=== PATIENT | female | born 1990 ===

== ENCOUNTER → 2018-05-31 | Outpatient (CLI) | payer OTHER ==
[~2018-05-31] MED LIST: ACET325 PO; DOCU100 PO; IBUP800 PO; Verotin-Gr Cap1 EACH PO
== END ==
LOC: LAB SHORT 16:24 → LAB 16:24
DX: Z34.81 Encounter for supervision of other normal pregnancy, first trimester (principal)
CPT/HCPCS: 87081; 87184; 87653

== ENCOUNTER 2018-07-01 19:38 | Inpatient (IN) | payer OTHER ==
[~2018-07-01] VITALS: Ht 157.5 cm; Wt 0.3 kg
--- NOTE | 2018-07-01 19:56 | NUR ---
HERE WITH POSSIBLE SROM AT 0900 TODAY. INTERMITTENT CONTRACTIONS
--- NOTE | 2018-07-01 20:47 | NUR ---
ADMITTED TO [facility] AFTER SROM AT 0900 THIS AM
[2018-07-01 21:20] LABS: BASOPHILS ABSOLUTE AUTO 0.03 K/mm3 (0.00-0.23); BASOPHILS PERCENT AUTO 0 % (0-2); EOSINOPHILS ABSOLUTE AUTO 0.11 K/mm3 (0.00-0.68); EOSINOPHILS PERCENT AUTO 1 % (0-6); Hematocrit 37.6 % (33.0-51.0); Hemoglobin 11.9 g/dL (11.5-16.0); IMMATURE GRAN ABSOLUTE AUTO 0.08 K/mm3 (0.00-0.10); IMMATURE GRAN PERCENT AUTO 1 % (0-1); LYMPHOCYTES ABSOLUTE AUTO 1.75 K/mm3 (0.84-5.20); LYMPHOCYTES PERCENT AUTO 17 % (21-46); MONOCYTES ABSOLUTE AUTO 0.92 K/mm3 (0.16-1.47); MONOCYTES PERCENT AUTO 9 % (4-13); Mean Corpuscular HGB 26.6 pg (26.0-34.0); Mean Corpuscular HGB Conc 31.6 g/dL (31.5-36.5); Mean Corpuscular Volume 84 fL (80-100); NEUTROPHILS ABSOLUTE AUTO 7.71 K/mm3 (1.96-9.15); NEUTROPHILS PERCENT AUTO 73 % (41-73); Platelet Count 228 K/mm3 (150-400); RDW Coefficient Variation 14.7 % (11.7-14.2); RDW Standard Deviation 45.2 fL (35.1-46.3); Red Blood Cell Count 4.47 M/mm3 (3.80-5.20)
[2018-07-02 05:59] LABS: Hemoglobin 11.7 g/dL (11.5-16.0); Mean Corpuscular HGB 26.5 pg (26.0-34.0); Mean Corpuscular HGB Conc 31.6 g/dL (31.5-36.5); Mean Corpuscular Volume 84 fL (80-100); Platelet Count 213 K/mm3 (150-400); RDW Coefficient Variation 14.6 % (11.7-14.2); RDW Standard Deviation 44.4 fL (35.1-46.3); Red Blood Cell Count 4.41 M/mm3 (3.80-5.20); White Blood Cell Count 18.07 K/mm3 (4.00-11.30)
--- NOTE | 2018-07-02 18:10 | NUR ---
D/C INSTRUCTIONS DISCUSSED AND SIGNED. PT HAS NO QUESTIONS OR CONCERNS AT THIS TIME. D/C
--- NOTE | 2018-07-02 18:21 | NUR ---
NO PPFU APPOINTMENT MADE AT THIS TIME BECAUSE PT D/C TO BE WITH [facility] THAT WAS TRANSPORTED TO [facility]
== END 2018-07-02 18:20 | disposition home or self-care (01) | DRG 807 ==
LOC: BC 19:38 → OBS 19:38 → BC 20:20
PROVIDERS: ADMIT Obstetrics & Gynecology
PROC: 10E0XZZ Delivery of Products of Conception, External Approach (ICD-10-PCS; principal; 2018-07-02)
DX: O99.824 Streptococcus B carrier state complicating childbirth (principal); Z37.0 Single live birth; Z3A.40 40 weeks gestation of pregnancy; Z88.0 Allergy status to penicillin; Z88.8 Allergy status to other drugs, medicaments and biological substances
CPT/HCPCS: 36415; 59025; 85025; 85027; 99213; J0690; J2590; J3010; J7120